=== PATIENT | male | born 1970 | race Caucasian/White ===

== ENCOUNTER 2022-07-19 08:50 | Emergency (ER) | payer SELFPAY ==
[~2022-07-19] VITALS: Ht 182.9 cm; Wt 92.0 kg
[2022-07-19 09:09] VITALS: BP 138/87
[2022-07-19] MEDS ORDERED: SODIUM CHLORIDE 0.9% 1,000 ML IV ONE (10:30)
[2022-07-19] MEDS ORDERED: LEVOFLOXACIN 250MG TABLET PO ONE (10:30)
[2022-07-19 10:47] LABS: HEMATOCRIT. 45.8 % (42.0-52.0); HEMOGLOBIN. 15.8 g/dL (14.0-18.0); MEAN CORPUSCULAR HEMOGLOBIN 31.7 pg (28.0-32.0); MEAN CORPUSCULAR VOLUME 91.6 fL (80.0-94.0); MEAN PLATELET VOLUME 7.9 fl (7.4-10.4); PLATELET 262 x1000/uL (130-400); RED CELL DISTRIBUTION WIDTH 12.4 % (11.6-14.6)
[2022-07-19 10:52] LABS: CHLORIDE 101 mEq/L (98-107)
[2022-07-19 11:19] LABS: PLATELET ESTIMATE NORMAL
[2022-07-19] MEDS ORDERED: LEVO750T46 MT (13:32)
== END 2022-07-19 13:52 | disposition home or self-care (01) ==
LOC: ER 08:50
DX: R19.7 Diarrhea, unspecified (principal)
CPT/HCPCS: 36415; 80053; 83690; 85025; 99283; J7030